=== PATIENT | female | born 1950 | race Caucasian/White ===

== ENCOUNTER 2020-01-03 14:46 | Emergency (ER) | payer MEDICARE, OTHER ==
[~2020-01-03] VITALS: Ht 170.2 cm; Wt 73.9 kg
[~2020-01-03 14:46] MED LIST: ALLOPURINOL100 MG PO; BUPROPION HCL100 MG PO; CARAFATE1 GM/10 ML PO; GABAPENTIN300 MG PO; LEVOTHYROXINE88 MCG PO; LINZESS PO; LOSARTAN POTASS25 MG PO; PREDNISONE20 MG PO; PROTONIX20 MG PO; RANITIDINE HCL150 M1 PO; SIMVASTATIN5 MG PO; VENLAFAXINE HC150 M1 PO
--- NOTE | 2020-01-03 15:14 | Emergency Department Note ---
History of Present Illnes History of Present Illness Chief Complaint: General Medicine Complaints History of Present Illness This is a 69 year old female s/p fall on out stretched hand 2 weeks prior. Patient fell in an grass covered hole in your backyeard with R wrist pain. During the past several days patient developed R chest wall pain followed by b/l Hip pain . Arrival Mode: Car Onset (how long ago): week(s) (2) Radiation: Reports extremity Severity: moderate Duration (how long): week(s) (2) Timing of current episode: constant Progression: worsening Chronicity: new Context: Reports trauma/injury Relieving factors: immobilization, rest Exacerbating factors: movement Associated symptoms: Reports denies other symptoms Treatments prior to arrival: none Past Medical/Family History Physician Review I have reviewed the patient's past medical and family history. Any updates have been documented here. Past Medical History Recent Fever: No Clinical Suspicion of Infectio: No New/Unexplained Change in Ment: No Other Medical History: BREAST CA HYPERLIPIDEMIA Other Surgery: L MASTECTOMY Social History Smoking Cessation: Never Smoker Alcohol Use: None Any Illegal Drug Use: No Other Last Tetanus: UNK Review of Systems Review of Systems Constitutional: Reports no symptoms EENTM: Reports no symptoms Cardiovascular: Reports no symptoms Respiratory: Reports no symptoms Gastrointestinal: Reports no symptoms Genitourinary: Reports no symptoms Musculoskeletal: Reports joint pain Integumentary: Reports no symptoms Neurological: Reports no symptoms Psychological: Reports no symptoms Endocrine: Reports no symptoms Hematological/Lymphatic: Reports no symptoms Physical Exam Related Data Allergies: Coded Allergies: hydrocodone (Verified Allergy, Mild, Severe itching, 10/31/14) Vital signs reviewed: Yes Physical Exam CONSTITUTIONAL Constitutional: Present well-developed, Present well-nourished HENT HENT: Present normocephalic, Present atraumatic, Present oropharynx clear/moist, Present nose normal HENT L/R: Present left ext ear normal, Present right ext ear normal EYES Eyes: Reports PERRL, Reports conjunctivae normal NECK Neck: Present ROM normal PULMONARY Pulmonary: Present effort normal, Present breath sounds normal CARDIOVASCULAR Cardiovascular: Present regular rhythm, Present heart sounds normal, Present capillary refill normal, Present normal rate GASTROINTESTINAL Abdominal: Present soft, Present nontender, Present bowel sounds normal GENITOURINARY Genitourinary: Present exam deferred SKIN Skin: Present warm, Present dry MUSCULOSKELETAL Musculoskeletal: Present tenderness (R wrist, R chest wall region, b/l Hip) NEUROLOGICAL Neurological: Present alert, Present oriented x 3, Present no gross motor or sensory deficits PSYCHOLOGICAL Psychological: Present mood/affect normal, Present judgement normal Results Imaging Imaging results reviewed: Yes Impressions [place] [address] Patient Name: HILL SAMUELS MR #: [id number] : 1950 Age/Sex: 69/F Req #: [id number] Adm Physician: Ordered by: MACARIO ROSE DO Report #: [id number] Location: ER Room/Bed: Procedure: [id number] DX/WRIST COMPLETE RIGHT Exam Date: 01/03/20 Exam Time: 1529 REPORT STATUS: Signed EXAM: FOREARM RIGHT 2 VIEW, WRIST COMPLETE RIGHT DATE: 01/03/2020 3:31 PM INDICATION: Fall COMPARISON: None FINDINGS: There is chronic deformity and postsurgical changes of the distal right radius with fixation plate and screws identified in place. Hardware appears intact without evidence for complication. There is no evidence for acute fracture or dislocation within the right wrist or forearm. No focal lytic or blastic abnormality is identified. There are scattered degenerative changes, most prominent at the first carpometacarpal joint. Soft tissue calcifications noted at the ulnar carpal joint. The surrounding soft tissues are otherwise unremarkable without evidence of radiopaque foreign body. IMPRESSION: No acute radiographic abnormality identified within the right wrist or forearm. Postsurgical changes of the distal right radius as above. Signed by: Dr. Nazario Cueto MD on 01/03/2020 4:28 PM Dictated By: NAZARIO CUEOT MD Transcribed By: MERE on 01/03/209 COPY TO: MACARIO ROSE DO~ [facility] [address] [place] [address] Patient Name: HILL SAMUELS MR #: [id number] : 1950 Age/Sex: 69/F Req #: [id number] Adm Physician: Ordered by: MACARIO ROSE DO Report #: [id number] Location: ER Room/Bed: Procedure: [id number] DX/HIPS BILAT TWO VWS(+/- PELVIS) Exam Date: Exam Time: REPORT STATUS: Signed EXAM: HIPS BILAT TWO VWS(+/- PELVIS) DATE: 01/03/2020 3:38 PM INDICATION: Fall COMPARISON: None FINDINGS: There is no evidence for acute fracture or dislocation no focal lytic or blastic abnormality is identified. There are advanced degenerative changes of the bilateral hips with joint space narrowing and associated subchondral sclerosis. Degenerative changes also noted of the visualized lumbosacral spine and bilateral SI joints. The visualized intrapelvic contents and surrounding soft tissues are unremarkable. IMPRESSION: No acute radiographic abnormality identified within the pelvis or bilateral hips. Degenerative changes as above. Signed by: Dr. Nazario Cueto MD on 01/03/2020 4:25 PM Dictated By: NAZARIO CUETO MD 24 Transcribed By: MERE on 01/03/201624 COPY TO: MACARIO ROSE ~ [place] [address] Patient Name: HILL SAMUELS MR #: [id number] : 1950 Age/Sex: 69/F Req #: [id number] Adm Physician: Ordered by: MACARIO ROSE DO Report #: [id number] Location: ER Room/Bed: Procedure: [id number] DX/FOREARM RIGHT 2 VIEW Exam Date: 01/03/20 Exam Time: 1529 REPORT STATUS: Signed EXAM: FOREARM RIGHT 2 VIEW, WRIST COMPLETE RIGHT DATE: 01/03/2020 3:31 PM INDICATION: Fall COMPARISON: None FINDINGS: There is chronic deformity and postsurgical changes of the distal right radius with fixation plate and screws identified in place. Hardware appears intact without evidence for complication. There is no evidence for acute fracture or dislocation within the right wrist or forearm. No focal lytic or blastic abnormality is identified. There are scattered degenerative changes, most prominent at the first carpometacarpal joint. Soft tissue calcifications noted at the ulnar carpal joint. The surrounding soft tissues are otherwise unremarkable without evidence of radiopaque foreign body. IMPRESSION: No acute radiographic abnormality identified within the right wrist or forearm. Postsurgical changes of the distal right radius as above. Signed by: Dr. Nazario Cueto MD on 01/03/2020 4:28 PM Dictated By: NAZARIO CUETO MD 27 Transcribed By: MERE on 01/03/201627 COPY TO: MACARIO ROSE DO~ [place] [address] Patient Name: HILL SAMUELS MR #: [id number] : 1950 Age/Sex: 69/F Req #: [id number] Adm Physician: Ordered by: MACARIO ROSE DO Report #: [id number] Location: ER Room/Bed: Procedure: [id number] DX/CHEST 2 VIEWS Exam Date: 01/03/20 Exam Time: 1529 REPORT STATUS: Signed EXAM: CHEST 2 VIEWS DATE: 01/03/2020 3:36 PM INDICATION: Fall COMPARISON: None FINDINGS: The trachea is midline. There is a 11 mm nodular opacity identified overlying the left midlung zone which may reflect a calcified granuloma. There is minimal bibasilar atelectasis. The lungs are otherwise symmetrically expanded without evidence for large focal consolidation, pneumothorax, or significant pleural effusion. The cardiomediastinal silhouette is within normal limits. Atherosclerotic calcifications are noted within the thoracic aorta. Surgical clips are noted within the left axilla. Cortical irregularity noted along the left fourth suggestive of a mildly displaced rib fracture of unknown chronicity. No other acute acute osseous abnormality is identified. IMPRESSION: Left fourth rib fracture of unknown chronicity. Suspected calcified granuloma noted overlying the left lower lung zone. No other acute cardiopulmonary process identified. Signed by: Dr. Nazario Cueto MD on 01/03/2020 4:24 PM Dictated By: NAZARIO CUETO MD [id number] Transcribed By: MERE on 01/03/20 1624 COPY TO: MACARIO ROSE DO~ Assessment & Plan Medical Decision Making MDM 69 yof presents to the ED for right wrist, right chest, and b/l hip pain s/p fall. Diff Dx : Fracture, sprain, strain, dislocation. Assessment & Plan Final Impression: (1) Sprain of right wrist (2) Right-sided chest wall pain (3) Hip pain, bilateral Home Meds Reported Medications Ranitidine Hcl (RANITIDINE HCL) 150 Mg Capsule, 150 MG PO DAILY 06/11/16 Venlafaxine Hcl (VENLAFAXINE HCL ER) 150 Mg Tab.er.24, 150 MG PO DAILY 10/31/14 Levothyroxine Sodium (LEVOTHYROXINE SODIUM) 88 Mcg Tablet, 88 MCG PO DAILY, #30 TAB 10/31/14 Simvastatin (SIMVASTATIN) 5 Mg Tablet, 5 MG PO DAILY 10/31/14 Gabapentin (GABAPENTIN) 300 Mg Capsule, 300 MG PO DAILY, #60 CAP 10/31/14 Allopurinol (ALLOPURINOL) 100 Mg Tablet, 100 MG PO DAILY, #30 TAB 10/31/14 Losartan Potassium (LOSARTAN POTASSIUM) 25 Mg Tablet, 25 MG PO DAILY 10/31/14 Bupropion Hcl (BUPROPION HCL) 100 Mg Tablet, 150 MG PO DAILY, #30 TAB 10/31/14 Pantoprazole Sodium (PROTONIX) 20 Mg Tablet., PO DAILY 10/31/14 MACARIO ROSE DO Jan 03, 2020 15:14
--- NOTE | 2020-01-03 16:27 | Diagnostic Imaging Report ---
EXAM: CHEST 2 VIEWS DATE: 01/03/2020 3:36 PM INDICATION: Fall COMPARISON: None FINDINGS: The trachea is midline. There is a 11 mm nodular opacity identified overlying the left midlung zone which may reflect a calcified granuloma. There is minimal bibasilar atelectasis. The lungs are otherwise symmetrically expanded without evidence for large focal consolidation, pneumothorax, or significant pleural effusion. The cardiomediastinal silhouette is within normal limits. Atherosclerotic calcifications are noted within the thoracic aorta. Surgical clips are noted within the left axilla. Cortical irregularity noted along the left fourth suggestive of a mildly displaced rib fracture of unknown chronicity. No other acute acute osseous abnormality is identified. IMPRESSION: Left fourth rib fracture of unknown chronicity. Suspected calcified granuloma noted overlying the left lower lung zone. No other acute cardiopulmonary process identified. Signed by: Dr. Nazario Cueto MD on 01/03/2020 4:24 PM
--- NOTE | 2020-01-03 16:29 | Diagnostic Imaging Report ---
EXAM: HIPS BILAT TWO VWS(+/- PELVIS) DATE: 01/03/2020 3:38 PM INDICATION: Fall COMPARISON: None FINDINGS: There is no evidence for acute fracture or dislocation no focal lytic or blastic abnormality is identified. There are advanced degenerative changes of the bilateral hips with joint space narrowing and associated subchondral sclerosis. Degenerative changes also noted of the visualized lumbosacral spine and bilateral SI joints. The visualized intrapelvic contents and surrounding soft tissues are unremarkable. IMPRESSION: No acute radiographic abnormality identified within the pelvis or bilateral hips. Degenerative changes as above. Signed by: Dr. Nazario Cueto MD on 01/03/2020 4:25 PM
--- NOTE | 2020-01-03 16:32 | Diagnostic Imaging Report ---
EXAM: FOREARM RIGHT 2 VIEW, WRIST COMPLETE RIGHT DATE: 01/03/2020 3:31 PM INDICATION: Fall COMPARISON: None FINDINGS: There is chronic deformity and postsurgical changes of the distal right radius with fixation plate and screws identified in place. Hardware appears intact without evidence for complication. There is no evidence for acute fracture or dislocation within the right wrist or forearm. No focal lytic or blastic abnormality is identified. There are scattered degenerative changes, most prominent at the first carpometacarpal joint. Soft tissue calcifications noted at the ulnar carpal joint. The surrounding soft tissues are otherwise unremarkable without evidence of radiopaque foreign body. IMPRESSION: No acute radiographic abnormality identified within the right wrist or forearm. Postsurgical changes of the distal right radius as above. Signed by: Dr. Nazario Cueto MD on 01/03/2020 4:28 PM
== END 2020-01-03 17:16 | disposition home or self-care (01) ==
LOC: ER 16:16
DX: S63.501A Unspecified sprain of right wrist, initial encounter (principal); R07.89 Other chest pain; M25.552 Pain in left hip; M25.551 Pain in right hip; W01.0XXA Fall on same level from slipping, tripping and stumbling without subsequent striking against object, initial encounter; Y92.007 Garden or yard of unspecified non-institutional (private) residence as the place of occurrence of the external cause; E78.5 Hyperlipidemia, unspecified; Z85.3 Personal history of malignant neoplasm of breast
CPT/HCPCS: 71046; 73521; 99283